=== PATIENT | female | born 1990 | race Caucasian/White ===

== ENCOUNTER 2022-05-20 09:32 | Emergency (ER) | payer OTHER, SELFPAY ==
--- NOTE | ~2022-05-20 | CT_ITS ---
EXAMINATION: CT ABDOMEN AND PELVIS WITHOUT CONTRAST CLINICAL INFORMATION: left flank pain, LLQ pain . COMPARISON: No pertinent prior studies are available for comparison. TECHNIQUE: Multidetector volumetric imaging was performed from the superior aspect of the liver through the pubic symphysis without contrast per renal stone protocol. Sagittal and coronal reformatted images were obtained on the technologist workstation. This CT examination was performed using dose optimization techniques as appropriate, variously including the following: *Automated exposure control *Adjustment of mA and/or kV according to patient size (this includes techniques or standardized protocols for targeted exams where dose is matched to indication/reason for exam; i.e. extremities or head) *Use of iterative reconstruction technique DLP: 740 mGy-cm. FINDINGS: LUNG BASES: Minimal dependent atelectasis. LIVER, GALLBLADDER, BILIARY TREE: The non-contrast liver is normal in size, shape, and attenuation. No focal hepatic lesion or biliary ductal dilatation is present. The gallbladder is unremarkable with no evidence of radiopaque gallstones, gallbladder wall thickening, or obvious pericholecystic inflammatory changes. PANCREAS: Unremarkable. SPLEEN: Unremarkable. ADRENAL GLANDS: Unremarkable. KIDNEYS AND URETERS: Multiple tiny intrarenal calculi are seen the largest of which is a 0.4 cm calculi in the left lower pole collecting system with punctate calcification seen elsewhere in the left and right collecting systems. No perinephric stranding. There is fullness to the left ureter and left collecting system with the left ureter dilated throughout its course up to a 4 mm calcification in the distal left ureter just proximal to the left UVJ. BLADDER: Decompressed but otherwise unremarkable GASTROINTESTINAL TRACT: A few scattered colonic diverticula incidentally noted. Normal-appearing appendix in the right lower quadrant. Visualized small bowel unremarkable. ABDOMINAL WALL: No significant hernia is appreciated. LYMPHOVASCULAR STRUCTURES: No lymphadenopathy. The aorta is unremarkable.. PELVIC VISCERA: IUD within the anteroverted uterus. Physiologic changes otherwise OSSEUS STRUCTURES: Unremarkable. CT/CT abdomen pelvis wo con IMPRESSION: Multiple bilateral intrarenal calculi seen. There is mild fullness to the left collecting system and left ureter up to a 4 mm calcification just proximal to the left ureterovesicular junction.
[2022-05-20 10:20] VITALS: BP 123/77; PULSE 77; RESP 20; TEMP 36.2; O2SAT 98; BMI 30.4
[2022-05-20] MEDS: Ondansetron ODT 4 MG TAB.RAPDIS TRANSLINGU (10:30)
[2022-05-20 10:58] LABS: Appearance Urine CLOUDY; Color Urine YELLOW; Glucose Urine UA NEG (NEG); Leukocyte Esterase Urine TRACE (NEG); Nitrite Urine NEG (NEG); PH 7.5 (5.0-8.0); Specific Gravity - Urine 1.015 (1.005-1.025); UACC Culture Trigger NO; Urine Blood 3+ (NEG); Urine Ketones NEG (NEG); Urine Protein TRACE MG/DL (NEG-TRACE)
[2022-05-20 11:12] LABS: Bacteria Urine 1+ /LPF; Squamous Epithelial Cell Urine 3+ /LPF
[2022-05-20 11:24] LABS: MANUAL DIFF FLAG NO
[2022-05-20 11:38] LABS: Basophils Percent Auto 0.2 % (0-2); Eosinophils Percent Auto 0.1 % (0-4); Hematocrit 41.4 % (37.0-47.0); Hemoglobin 13.8 g/dl (12.0-16.0); Imm Gran Abs Auto 0.04 X10*3/uL (0.00-0.03); Imm Gran Pct Auto 0.3 % (0.0-0.4); Lymphocytes Absolute Auto 1.4 X10*3/uL (1.2-4.9); Lymphocytes Percent Auto 9.9 % (20-40); Mean Corpuscular HGB Conc 33.3 g/dl (31.0-35.0); Mean Corpuscular Hemoglobin 30.1 pg (27.0-33.0); Mean Corpuscular Volume 90.2 fL (80.0-98.0); Mean Platelet Volume 9.4 fL (9.4-12.3); Monocytes Absolute Auto 0.4 X10*3/uL (0.1-1.2); Monocytes Percent Auto 2.6 % (2-11); Neutrophils Absolute Auto 11.9 x10*3/uL (2.0-8.3); Neutrophils Percent Auto 86.9 % (45-73); Platelet Count 320 X10*3/uL (160-400); Red Blood Count 4.59 X10*6/uL (4.20-5.50); Red Cell Distribution Width 12.8 % (11.0-16.0); White Blood Count 13.7 X10*3/uL (4.8-10.8)
[2022-05-20 11:41] LABS: Alanine Aminotransferase 16 U/L (0-31); Albumin Level 4.5 g/dL (3.5-5.0); Alkaline Phosphatase 49 U/L (39-117); Anion Gap 12 (12-20); Aspartate Amino Transferase 15 U/L (5-31); Bilirubin Total 0.5 mg/dL (0.0-1.0); Blood Urea Nitrogen 15 mg/dL (9-16); Calcium 9.3 mg/dL (8.4-10.2); Carbon Dioxide 23 mmol/L (22-29); Chloride 108 mmol/L (96-108); Creatinine Clr Calc Pharmacy 83.2; Estimated Glomerular Filt Rate 59; Glucose Random 133 mg/dL (60-115); Potassium 4.4 mmol/L (3.3-5.1); Sodium 139 mmol/L (135-145); Total Protein 7.1 g/dL (6.5-8.0)
--- NOTE | 2022-05-20 13:45 | ED.ABDPAIN ---
HPI - Abdominal Pain General Chief Complaint: Abdominal Pain Stated Complaint: L low back , L abd pain , vomiting Time Seen by Provider: 05/20/22 13:26 Source: patient Mode of arrival: ambulatory Limitations: no limitations History of Present Illness HPI narrative: 31-year-old female with a history of kidney stones awoke this morning at 07:00 with severe left-sided flank pain that is now radiating to her left lower quadrant of her abdomen. States she has vomited 6 times, she feels nauseous. No fevers, no diarrhea. No UTI symptoms, no pelvic pain, no vaginal discharge or vaginal bleeding. No chest pain, no shortness of breath MD elicited complaint: abdominal pain and flank pain Pertinent past history: kidney stones Onset (ago): hour(s) (6) Pain Consistency: constant Location: LLQ and L flank Severity: severe Quality: stabbing Radiation: LLQ Migration to: no migration Exacerbating factors: movement Relieving factors: rest Associated symptoms: nausea and vomiting Related Data Previous Rx's Medication Instructions Recorded ketorolac 10 mg tablet 10 mg PO Q6H 5 days #20 tabs 05/20/22 ondansetron 4 mg disintegrating 4 mg PO Q8H PRN nausea and 05/20/22 tablet vomiting #6 tabs oxycodone 5 mg capsule 5 mg PO Q8H PRN pain #6 caps 05/20/22 prednisone 20 mg tablet 40 mg PO DAILY 3 days #6 tabs 05/20/22 tamsulosin 0.4 mg capsule (Flomax) 0.4 mg PO DAILY 14 days #14 caps 05/20/22 Allergies Allergy/AdvReac Type Severity Reaction Status Date / Time Codeine Sulfate Allergy Unknown Uncoded 12/23/19 00:00 Review of Systems Constitutional: Denies body ache(s), Denies chills, Denies fatigue, Denies fever(s), Denies malaise and Denies weakness Eyes: Denies diplopia Cardiovascular: Denies chest pain, Denies syncope, Denies leg edema, Denies lightheadedness, Denies Loss of Consciousness, Denies palpitations and Denies dyspnea Respiratory: Denies chest congestion, Denies cough and Denies dyspnea Gastrointestinal: Reports abdominal pain, Denies melena, Denies hematochezia, Denies coffee ground emesis, Denies constipation, Denies diarrhea, Reports nausea, Reports vomiting and Denies hematemesis Genitourinary: Denies abnormal vaginal bleeding, Denies dysmenorrhea, Denies pelvic pain, Reports flank pain, Denies urinary hesitancy, Denies urinary urgency, Denies vaginal discharge and Denies vaginal odor Musculoskeletal: Reports no additional musculoskeletal complaints Denies confusion, Denies syncope and Denies weakness Psychiatric: Denies anxiety, Denies confusion and Denies depression Endocrine: Denies fatigue and Denies palpitations PMFSH Social History Social History Patient Tobacco Use Status: Never used Tobacco Use of substances other than those prescribed or required for medical reasons: No Advance Directives: No Advance Directives Information Provided: Yes Physical Exam ED Vital Signs: Vital Signs - 24 hr 05/20/22 10:20 05/20/22 14:00 05/20/22 15:53 Temperature 97.2 F Pulse Rate 77 71 65 Respiratory Rate 20 20 17 Blood Pressure 123/77 116/66 115/61 Pulse Oximetry 98 100 99 Oxygen Delivery Method Room Air Room Air Room Air BMI result Body Mass Index 30.4 Const General: No confusion Nutritional Appearance: well nourished Orientation/consciousness: No confusion Limitations: no limitations Eyes Conjunctivae: conjunctivae normal Pupils: Equal, round and reactive pupils present EOM: EOMs intact bilaterally Neck Neck: Yes full ROM, Yes no lymphadenopathy and Yes supple Resp Effort & Inspection: normal respiratory effort and able to speak in complete sentences Auscultation: clear to auscultation bilaterally, no crackles, no rales, no rhonchi and no wheezes Cardio Rate: regular rate Rhythm: regular rhythm Heart sounds: S1 normal heart sound present and S2 normal heart sound present GI Inspection: Yes normal to inspection Palpation (GI): Soft to palpation, nontender, no guarding and not rigid Percussion: Yes normal to percussion Auscultation: normal bowel sounds General: Yes CVA tenderness on the left Back/Spine/Pelvis Back: CVA tenderness Skin General skin exam: no rashes or lesions noted Neuro General: No confusion Cranial nerves: Yes Equal, round and reactive pupils present Extrem General: Yes normal to inspection and Yes full ROM Psych Appearance: grossly normal Affect: normal affect Attitude: cooperative Thought process: Normal thought process present Course Course Course Narrative: 31-year-old female presents with sudden onset left flank pain radiating to her left lower quadrant that started 07:00 this morning. Patient has had a history of kidney stones. Patient has been vomiting and is nauseous. Patient can can not not get comfortable, movement makes the pain worse. On exam, patient is in moderate distress from the pain, vitals are stable, patient is afebrile, abdominal exam is unremarkable, patient has left CVA tenderness. Patient has a leukocytosis of 13.7, chemistries are unremarkable, patient is negative hCG, urine shows trace leukocyte esterase and blood. Will get CT abdomen to rule out stone or acute abdominal pathology Reevaluation(s) Reevaluation #1: On re-examination, patient's pain is well controlled, awaiting CT UA shows trace leukocyte esterase and blood. CT shows mild fullness of the last collecting system and left ureter and a 4 mm stone just proximal to the UVJ tiger text with Dr. Sampson to send patient home with pain meds, Flomax, prednisone, antibiotics to treat mild UTI, and follow-up with him Dr. Sampson agreed with plan explained plan to patient, gave return precautions, patient is feeling much better and is safe to go home Reevaluation #2: CT/CT abdomen pelvis wo con IMPRESSION: Multiple bilateral intrarenal calculi seen. There is mild fullness to the left collecting system and left ureter up to a 4 mm calcification just proximal to the left ureterovesicular junction. MDM - Abdominal Pain Lab Data Result diagrams: 05/20/22 11:20 05/20/22 11:20 Labs: Lab Results 05/20/22 05/20/22 05/20/22 Range/Units 10:51 11:20 11:20 WBC 13.7 H (4.8-10.8) X10*3/uL RBC 4.59 (4.20-5.50) X10*6/uL Hgb 13.8 (12.0-16.0) g/dl Hct 41.4 (37.0-47.0) % MCV 90.2 (80.0-98.0) fL MCH 30.1 (27.0-33.0) pg MCHC 33.3 (31.0-35.0) g/dl RDW 12.8 (11.0-16.0) % Plt Count 320 (160-400) X10*3/uL MPV 9.4 (9.4-12.3) fL Immature Gran % (Auto) 0.3 (0.0-0.4) % Neut % (Auto) 86.9 H (45-73) % Lymph % (Auto) 9.9 L (20-40) % Edwards % (Auto) 2.6 (2-11) % Eos % (Auto) 0.1 (0-4) % Baso % (Auto) 0.2 (0-2) % Lymph # (Auto) 1.4 (1.2-4.9) X10*3/uL Edwards # (Auto) 0.4 (0.1-1.2) X10*3/uL Eos # (Auto) 0.0 (0.0-0.4) X10*3/uL Baso # (Auto) 0.0 (0.0-0.2) X10*3/uL Abs Immat Gran (auto) 0.04 H (0.00-0.03) X10*3/uL Absolute Neuts (auto) 11.9 H (2.0-8.3) x10*3/uL Absolute Nucleated RBC 0.000 (0.0-0.012) X10*3/uL Nucleated RBC % (auto) 0.0 (0.0-0.2) /100WBC Sodium 139 (135-145) mmol/L Potassium 4.4 (3.3-5.1) mmol/L Chloride 108 (96-108) mmol/L Carbon Dioxide 23 (22-29) mmol/L Anion Gap 12 (12-20) BUN 15 (9-16) mg/dL Creatinine 1.07 (0.5-1.4) mg/dL Estim Creat Clear Calc 83.2 Estimated GFR 59 Random Glucose 133 H (60-115) mg/dL Calcium 9.3 (8.4-10.2) mg/dL Total Bilirubin 0.5 (0.0-1.0) mg/dL AST 15 (5-31) U/L ALT 16 (0-31) U/L Alkaline Phosphatase 49 (39-117) U/L Total Protein 7.1 (6.5-8.0) g/dL Albumin 4.5 (3.5-5.0) g/dL Beta HCG, Quant < 2 mIU/mL Urine Color YELLOW Urine Appearance CLOUDY Urine pH 7.5 (5.0-8.0) Ur Specific [place] 1.015 (1.005-1.025) Urine Protein TRACE (NEG-TRACE) MG/DL Urine Glucose (UA) NEG (NEG) MG/DL Urine Ketones NEG (NEG) MG/DL Urine Blood 3+ H (NEG) Urine Nitrite NEG (NEG) Ur Leukocyte Esterase TRACE H (NEG) Urine RBC 76-150 H (0) /HPF Urine WBC 1-4 (0-4) /HPF Ur Squamous Epith Cells 3+ /LPF Urine Bacteria 1+ /LPF COVID-19 (ADRIANE) (Negative) COVID-19 Clin Com 05/20/22 Range/Units 13:59 WBC (4.8-10.8) X10*3/uL RBC (4.20-5.50) X10*6/uL Hgb (12.0-16.0) g/dl Hct (37.0-47.0) % MCV (80.0-98.0) fL MCH (27.0-33.0) pg MCHC (31.0-35.0) g/dl RDW (11.0-16.0) % Plt Count (160-400) X10*3/uL MPV (9.4-12.3) fL Immature Gran % (Auto) (0.0-0.4) % Neut % (Auto) (45-73) % Lymph % (Auto) (20-40) % Edwards % (Auto) (2-11) % Eos % (Auto) (0-4) % Baso % (Auto) (0-2) % Lymph # (Auto) (1.2-4.9) X10*3/uL Edwards # (Auto) (0.1-1.2) X10*3/uL Eos # (Auto) (0.0-0.4) X10*3/uL Baso # (Auto) (0.0-0.2) X10*3/uL Abs Immat Gran (auto) (0.00-0.03) X10*3/uL Absolute Neuts (auto) (2.0-8.3) x10*3/uL Absolute Nucleated RBC (0.0-0.012) X10*3/uL Nucleated RBC % (auto) (0.0-0.2) /100WBC Sodium (135-145) mmol/L Potassium (3.3-5.1) mmol/L Chloride (96-108) mmol/L Carbon Dioxide (22-29) mmol/L Anion Gap (12-20) BUN (9-16) mg/dL Creatinine (0.5-1.4) mg/dL Estim Creat Clear Calc Estimated GFR Random Glucose (60-115) mg/dL Calcium (8.4-10.2) mg/dL Total Bilirubin (0.0-1.0) mg/dL AST (5-31) U/L ALT (0-31) U/L Alkaline Phosphatase (39-117) U/L Total Protein (6.5-8.0) g/dL Albumin (3.5-5.0) g/dL Beta HCG, Quant mIU/mL Urine Color Urine Appearance Urine pH (5.0-8.0) Ur Specific [place] (1.005-1.025) Urine Protein (NEG-TRACE) MG/DL Urine Glucose (UA) (NEG) MG/DL Urine Ketones (NEG) MG/DL Urine Blood (NEG) Urine Nitrite (NEG) Ur Leukocyte Esterase (NEG) Urine RBC (0) /HPF Urine WBC (0-4) /HPF Ur Squamous Epith Cells /LPF Urine Bacteria /LPF COVID-19 (ADRIANE) Negative (Negative) COVID-19 Clin Com See Note Discharge Plan Discharge Clinical Impression: Kidney stone on left side Patient Disposition: Home, Self-Care Instructions: Kidney Stones (ED) Additional Instructions: please call Urology at the following number if you have not heard from them by tomorrow morning [phone] please do not take any ibuprofen containing products while you are taking ketorolac. Please take Zofran every 8 hours as needed for nausea. Please take prednisone once a day, take your dose today when you get it. Same with the Bernice guzman send. Use the oxycodone as needed every 6 hours. Please return to emergency room if you have worsening pain, fevers, or any other new or concerning symptoms Prescriptions: New ketorolac 10 mg tablet 10 mg PO Q6H 5 Days Qty: 20 0RF prednisone 20 mg tablet 40 mg PO DAILY 3 Days Qty: 6 0RF ondansetron 4 mg tablet,disintegrating 4 mg PO Q8H PRN (Reason: nausea and vomiting) Qty: 6 0RF tamsulosin [Flomax] 0.4 mg capsule 0.4 mg PO DAILY 14 Days Qty: 14 0RF oxycodone 5 mg capsule 5 mg PO Q8H PRN (Reason: pain) Qty: 6 0RF Rx Instructions: Partial Fill upon patient request. Referrals: Rufino Sampson MD [Physician] -
[2022-05-20] MEDS: ondansetron HCL 4 MG/2 ML VIAL IVPUSH (13:57)
[2022-05-20] MEDS: 0.9 % Sodium Chloride 1,000 ML 999 ML IV (13:57)
[2022-05-20] MEDS: Morphine Sulfate 4 MG/ML CARTRIDGE IVPUSH (13:58)
[2022-05-20] MEDS: Ketorolac Tromethamine 15 MG/ML VIAL IVPUSH (13:59)
[2022-05-20 14:00] VITALS: BP 116/66; PULSE 71; RESP 20; O2SAT 100
[2022-05-20 14:13] LABS: HCG Quantitative < 2 mIU/mL
[2022-05-20 14:16] LABS: COVID-19 Test Negative (Negative); IDNOW Serial# 16C4AD1C
[2022-05-20 15:53] VITALS: BP 115/61; PULSE 65; RESP 17; O2SAT 99
== END 2022-05-20 17:01 | disposition home or self-care (01) ==
PROVIDERS: Physician Assistant; Emergency Provider Emergency Medicine Emergency Medical Services
DX: N20.2 Calculus of kidney with calculus of ureter (principal); R10.9 Unspecified abdominal pain; Z20.822 Contact with and (suspected) exposure to COVID-19; R11.2 Nausea with vomiting, unspecified; Z87.442 Personal history of urinary calculi
CPT/HCPCS: 36415; 74176; 80053; 81001; 84702; 85025; 87635; 96361; 96374; 96375; 96376; 99284; J1885; J2270; J2405

== ENCOUNTER 2022-06-12 10:14 | Outpatient (REF) | payer OTHER, SELFPAY ==
[2022-06-18 23:06] LABS: Stone Source KIDNEY STONE
== END 2022-06-12 10:15 | disposition home or self-care (01) ==
LOC: HO.LAB 10:14
DX: N20.0 Calculus of kidney (principal)
CPT/HCPCS: 82365; 88300

== ENCOUNTER 2022-11-25 09:56 | Outpatient (REF) | payer OTHER, SELFPAY ==
--- NOTE | ~2022-11-25 | US_ITS ---
EXAMINATION: US RETROPERITONEAL LIMITED (RENAL ONLY) CLINICAL INFORMATION: Calculus of kidney. COMPARISON: CT abdomen pelvis 05/20/2022 TECHNIQUE: Real-time imaging of the kidneys. FINDINGS: RIGHT KIDNEY: 10.4 x 4.4 x 4.6 cm (SAG x AP x TRV). The kidney is normal in size, contour, and echogenicity. Renal cortical thickness is normal. No calculi or focal parenchymal lesions. No hydronephrosis. LEFT KIDNEY: 10.4 x 5.4 x 5.1 cm (SAG x AP x TRV). The kidney is normal in size, contour, and echogenicity. Renal cortical thickness is normal. No calculi or focal parenchymal lesions. No hydronephrosis. US/US renal BI IMPRESSION: No renal calculi demonstrated by ultrasound. No hydronephrosis.
== END 2022-11-25 09:57 | disposition home or self-care (01) ==
LOC: HO.US 09:56
DX: N20.0 Calculus of kidney (principal)
CPT/HCPCS: 76775

== ENCOUNTER → 2022-12-12 09:24 | Outpatient (BNVA) | payer OTHER, SELFPAY | PROVIDERS: PCP Internal Medicine; Visit Provider Nurse Practitioner Family | DX: Z13.89 Encounter for screening for other disorder (principal) ==

== ENCOUNTER 2023-07-30 12:51 | Outpatient (REF) | payer OTHER, SELFPAY ==
--- NOTE | ~2023-07-30 | XR_ITS ---
EXAMINATION: XR ABDOMEN KUB CLINICAL INDICATION: Calculus of kidney. COMPARISON: Renal ultrasound 11/25/2022, CT abdomen and pelvis 05/20/2022. TECHNIQUE: AP view of the abdomen. FINDINGS: The bowel gas pattern is normal with no evidence of ileus or obstruction. A large amount of gas and stool overlies the renal fossa. The small calculi seen on the prior CT scan in the kidneys are not visualized on the current exam. No nephrocalcinosis visualized. No unusual soft tissue calcifications are noted. The bones are unremarkable. An intrauterine device is present in the uterus which is tipped to the left. XR/XR KUB IMPRESSION: 1. No plain film evidence of renal calculi. 2. Intrauterine device in the uterus.
== END 2023-07-30 12:52 | disposition home or self-care (01) ==
LOC: HO.XRAY 12:51
PROVIDERS: PCP Internal Medicine; Visit Provider Nurse Practitioner Family
DX: N20.0 Calculus of kidney (principal)
CPT/HCPCS: 74018

== ENCOUNTER 2023-08-11 08:32 | Outpatient (AMB) | payer OTHER, SELFPAY ==
--- NOTE | 2023-08-11 08:38 | MHC.OFFVIS ---
Intake Intake Visit Reasons: 6m/KUB(set) Intake Note: Patient is present for follow up KUB/kidney stone (imaging 07/30/23) Urology Medication: none Blood Thinner: none Consignee Required: No Accompanied by: Self / Same As Patient Allergies Codeine Sulfate Allergy (Unknown, Uncoded 08/11/23 09:17) Unknown Medication List - Last Reconciled 08/11/23 by DENISE Clark sertraline 100 mg PO DAILY sertraline 50 mg PO DAILY HPI HPI Comments History of Present Illness Details Rosalia is a pleasant 33-year-old female patient of Dr. Gilliland. The patient presents to the office today for follow-up regarding her nephrolithiasis. Patient states that since the age of [age] years old she has had intermittent episodes of nephrolithiasis. Most recent episode was May of 2022 in which she was able to pass the stone on her own. In discussion with the patient today she reports she continues to drink adequate amount of daily fluid intake in addition to adding lemon to her water. Recent renal imaging reviewed with the patient today. No evidence of renal calculi noted. Patient denies any urinary symptoms or concerns at this time. In office urinalysis results reviewed with the patient today. When asked she denies urinary urgency, urinary frequency, incontinence, nocturia, hematuria, dysuria, foul smelling urine, changes to urinary stream, flank pain, fever, and or chills. She is happy with her current voiding parameters. [facility] Medical History Renal calculi Social History Patient Tobacco Use Status: Never used Tobacco Review of Systems Const All systems reviewed & are unremarkable except as noted in HPI and below Physical Exam Const General: cooperative, healthy appearing, comfortable, no acute distress, well developed, alert and awake Nutritional Appearance: average body habitus Orientation/consciousness: patient oriented x3 Limitations: no limitations HEENT Head: Yes normal to inspection, Yes normocephalic and Yes atraumatic Ears: hearing grossly normal bilaterally Neck Neck: Yes normal visual inspection and Yes trachea midline Chest Chest palpation & inspection: normal inspection of the chest Resp Effort & Inspection: normal respiratory effort and able to speak in complete sentences Cardio Rate: regular rate GI Inspection: Yes normal to inspection General: Yes no CVA tenderness Back/Spine/Pelvis Back: no CVA tenderness Cervical Spine: normal cervical lordosis Skin General skin exam: no rashes or lesions noted Neuro General: patient oriented x3 Extrem General: Yes normal to inspection Psych Appearance: grossly normal and well kempt Mental Status: mental status grossly normal Speech and movement: Normal speech and movement present and Clear speech present Affect: normal affect Attitude: cooperative Thought process: Normal thought process present Thought content: Normal thought content present Insight: Good insight present (Psych) Judgement: Good judgement present (Psych) Results AMB Urinalysis, Automated UA Leukoctes 70 Katey/uL Last Edit by [employer] on 08/11/23 08:48 UA Nitrite Negative Last Edit by [employer] on 08/11/23 08:48 UA Urobilinogen 0.2 mg/dL Last Edit by [employer] on 08/11/23 08:48 UA Protein 15 mg/dL Last Edit by [employer] on 08/11/23 08:48 UA pH 8.0 Last Edit by [employer] on 08/11/23 08:48 UA Blood 0 Brenden/uL Last Edit by [employer] on 08/11/23 08:48 UA Specific [place] 1.010 Last Edit by [employer] on 08/11/23 08:48 UA Ketone Negative Last Edit by [employer] on 08/11/23 08:48 UA Bilirubin 0 mg/dL Last Edit by [employer] on 08/11/23 08:48 UA Glucose 0 mg/dL Last Edit by [employer] on 08/11/23 08:48 Results Reviewed Results Reviewed: Laboratory Last Values Urine pH (Auto) 8.0 08/11/23 08:43 Specific [place] (Auto) 1.010 08/11/23 08:43 Urine Protein (Auto) 15 mg/dL 08/11/23 08:43 Glucose (UA)(Auto) 0 mg/dL 08/11/23 08:43 Urine Ketones (Auto) Negative 08/11/23 08:43 Urine Blood (Auto) 0 Brenden/uL 08/11/23 08:43 Urine Nitrite (Auto) Negative 08/11/23 08:43 Urine Bilirubin (Auto) 0 mg/dL 08/11/23 08:43 Urine Urobilinogen (Auto) 0.2 mg/dL 08/11/23 08:43 Leukocyte Esterase (Auto) 70 Katey/uL 08/11/23 08:43 Date of Service: 07/30/23 EXAMINATION: XR ABDOMEN KUB FINDINGS: The bowel gas pattern is normal with no evidence of ileus or obstruction. A large amount of gas and stool overlies the renal fossa. The small calculi seen on the prior CT scan in the kidneys are not visualized on the current exam. No nephrocalcinosis visualized. No unusual soft tissue calcifications are noted. The bones are unremarkable. An intrauterine device is present in the uterus which is tipped to the left. IMPRESSION: 1. No plain film evidence of renal calculi. 2. Intrauterine device in the uterus. Assessment & Plan Assessment & Plan (1) Renal calculi: Code(s): N20.0 - Calculus of kidney Plan In office urinalysis results reviewed with the patient today. Recent KUB imaging results reviewed with the patient today; as noted above Patient denies any bothersome urinary issues or concerns at this time. Will obtain renal ultrasound in 1 year. Educated, instructed, and encouraged to continue drinking plenty of water daily An adding 1 oz of lemon juice to water daily. Follow-up in 1 year with imaging to be completed prior; or sooner with any issues, concerns, and or questions Orders: Orders US retroperitoneal comp 364 Days N20.0 - Calculus of kidney AMB Urinalysis Automated Today Z13.9 - Encounter for screening, unspecified Patient Instructions: The patient had an opportunity to ask questions regarding the treatment plan. All questions were answered. Physical exam, labs, and imaging were discussed and reviewed in detail. As well as risks, benefits, and discussion of treatment choices. No major barriers to understanding were identified. The patient expressed understanding and agreement with the above treatment plan. The patient was made aware they should contact our office by phone for worsening of their current condition, the appearance of new symptoms, or with any questions or concerns. Compliance is encouraged with any medications and follow up testing that is ordered. It is a privilege to be allowed the opportunity to participate in? your urological care.? Again, if you have any questions or concerns If you have any questions or concerns please do not hesitate to contact me. The office is [phone]. This note is constructed using voice recognition software. While every effort has been made to ensure accuracy pill machine operator errors may have been included. Yours sincerely, DENISE Clark Coding Level of Care Code Est Pt Level 3 (75423) Diagnoses Renal calculi N20.0
== END 2023-08-11 09:07 | disposition home or self-care (01) ==
PROVIDERS: PCP Internal Medicine; Visit Provider Nurse Practitioner Family
DX: Z13.9 Encounter for screening, unspecified (principal); N20.0 Calculus of kidney
CPT/HCPCS: 99213

== ENCOUNTER → 2023-08-11 08:32 | Outpatient (BNVA) | payer OTHER, SELFPAY | PROVIDERS: Visit Provider Nurse Practitioner Family | DX: N20.0 Calculus of kidney (principal) | CPT/HCPCS: 81003 ==

== ENCOUNTER 2024-09-08 15:23 | Outpatient (REF) | payer OTHER, SELFPAY | END 2024-09-08 15:24 | disposition home or self-care (01) | LOC: HO.HMGCX 15:23 | PROVIDERS: PCP Internal Medicine; Visit Provider Nurse Practitioner Family | DX: N20.0 Calculus of kidney (principal) | CPT/HCPCS: 76770 ==

== ENCOUNTER 2024-10-12 12:52 | Outpatient (AMB) | payer OTHER, SELFPAY ==
--- NOTE | 2024-10-12 12:50 | A.OFFVIS_ITS ---
Intake Visit Reasons: US Results(set) Intake Note: Patient presents today for tele visit follow up on: kidney stone and ultrasound results Imaging Completed: 09/08/24 Urology Medication: none Blood Thinner: none Life Insurance Sales Required: No Accompanied by: Self / Same As Patient Allergies Codeine Sulfate Allergy (Unknown, Uncoded 10/12/24 13:36) Unknown Medication List - Last Reconciled 10/12/24 by DENISE Clark clonazepam 0.5 mg PO DAILY sertraline 200 mg PO DAILY HPI Comments Details: Rosalia is a pleasant 34-year-old female patient of Dr. Gilliland. She is being followed up on today via telehealth for her history of nephrolithiasis. In discussion with the patient today she reports to be doing and feeling well. Recent renal imaging 10/10 results reviewed with the patient today. Bilateral kidneys with no hydronephrosis. Bilateral nonobstructing calculi measuring 3-4 mm in size. She has a longstanding history of nephrolithiasis since the age of [age] years old. Most recent episode was May of 2022 in which she was able to pass the stone on her own. In discussion with the patient today she reports she continues to drink adequate amount of daily fluid intake in addition to adding lemon to her water. She currently denies any bothersome urinary issues or concerns at this time. She denies urinary urgency, urinary frequency, incontinence, nocturia, hematuria, dysuria, foul smelling urine, changes to urinary stream, flank pain, fever, and or chills. She is happy with her current voiding parameters. We discussed nephrolithiasis workup to include urorisk/24 hour urine collection. She otherwise offers no other issues or concerns at this time. [facility], LAT[facility] Medical History Renal calculi Social History Patient Tobacco Use Status: Never used Tobacco Review of Systems Const All systems reviewed & are unremarkable except as noted in HPI and below Physical Exam Const General: cooperative Orientation/consciousness: patient oriented x3 Resp Effort & Inspection: able to speak in complete sentences Neuro General: patient oriented x3 Psych Speech and movement: Clear speech present Attitude: cooperative Thought process: Normal thought process present Thought content: Normal thought content present Insight: Fair insight present (Psych) Judgement: Fair judgement present (Psych) Telehealth Telehealth Telehealth Platform: [employer] Location of provider rendering services: practice address Location of patient: address on file Patient Identification confirmed using: Name, : Yes Telehealth method: voice only Patient verbally consented to treatment: Yes Patient verbally consented to billing insurance company: Yes Patient informed of any privacy concerns related to visit: Yes Minutes spent on Phone/Video with Pt.: 15 Results Reviewed Results Reviewed: Date of Service: 09/08/24 EXAMINATION: US RETROPERITONEAL COMPLETE (RENAL) FINDINGS: RIGHT KIDNEY: 10.7 x 4.5 x 5.8 cm (SAG x AP x TRV). No hydronephrosis. RIGHT renal calculus measures 0.4 cm lower pole, 0.4 cm lower pole, and 0.3 cm midpole. Limited visualization. LEFT KIDNEY: 10.7 x 5.7 x 5.2 cm (SAG x AP x TRV). No hydronephrosis. LEFT renal 0.3 cm mid pole calculus. Limited visualization. BLADDER: Well-distended. Bilateral ureteral jets are demonstrated. Prevoid bladder volume is 475 mL. Postvoid bladder volume is 3 mL. IMPRESSION: Bilateral nephrolithiasis. No hydronephrosis. Assessment & Plan Assessment & Plan (1) Renal calculi: Code(s): N20.0 - Calculus of kidney Category: Medical Plan Recent renal imaging results reviewed with the patient today; as noted above. We discussed potential causes of nephrolithiasis. Will obtain Litholink for further assessment evaluation. Discussed, educated, and stressed the importance of hydration in relation to nephrolithiasis as well as overall health and well-being. Continue adding 1 oz of lemon juice to water daily. Follow-up in 3 months with Litholink to be completed prior; or sooner with any issues, concerns, and or questions. Orders: Orders URORISK 10/12/24 N20.0 - Calculus of kidney Patient Instructions: The patient had an opportunity to ask questions regarding the treatment plan. All questions were answered. Physical exam, labs, and imaging were discussed and reviewed in detail. As well as risks, benefits, and discussion of treatment choices. No major barriers to understanding were identified. The patient expressed understanding and agreement with the above treatment plan. The patient was made aware they should contact our office by phone for worsening of their current condition, the appearance of new symptoms, or with any questions or concerns. Compliance is encouraged with any medications and follow up testing that is ordered. It is a privilege to be allowed the opportunity to participate in? your urological care.? Again, if you have any questions or concerns If you have any questions or concerns please do not hesitate to contact me. The office is [phone]. This note is constructed using voice recognition software. While every effort has been made to ensure accuracy bird tender errors may have been included. Yours sincerely, DENISE Clark Coding Level of Care Code Tele Est Pt Level 3 (93297) Diagnoses Renal calculi N20.0
== END 2024-10-12 13:28 | disposition home or self-care (01) ==
LOC: HO.HUSH 12:52
PROVIDERS: PCP Internal Medicine; Visit Provider Nurse Practitioner Family
DX: N20.0 Calculus of kidney (principal)
CPT/HCPCS: 99213